=== PATIENT | male | born 1965 | race Caucasian/White ===

== ENCOUNTER 2018-07-13 21:27 | Emergency (ER) | payer OTHER ==
[~2018-07-13] VITALS: Ht 167.6 cm; Wt 87.5 kg
[2018-07-13 21:42] VITALS: Ht 167.6 cm; Wt 87.5 kg
[2018-07-13 23:49] VITALS: BP 126/75
== END 2018-07-13 23:49 | disposition home or self-care (01) ==
LOC: ED 21:27
DX: R33.9 Retention of urine, unspecified (principal)